=== PATIENT | female | born 1955 | race Two or more races ===

== ENCOUNTER 2021-04-13 12:31 | Emergency (ER) | payer BC, OTHER ==
[~2021-04-13] VITALS: Ht 157.5 cm; Wt 72.6 kg
[2021-04-13 13:18] VITALS: BP 174/88
== END 2021-04-13 13:59 | disposition home or self-care (01) ==
LOC: ER 12:31
DX: S00.451A Superficial foreign body of right ear, initial encounter (principal); W45.8XXA Other foreign body or object entering through skin, initial encounter; Y93.89 Activity, other specified; Y92.89 Other specified places as the place of occurrence of the external cause; Y99.8 Other external cause status